=== PATIENT | female | born 1960 | race African-American/Black ===

== ENCOUNTER 2017-07-28 22:04 | Emergency (ER) | payer OTHER, BC ==
[~2017-07-28] VITALS: Ht 165.1 cm; Wt 74.0 kg
[~2017-07-28 22:04] MED LIST: CEPH500C3 PO; HYDR-3535 PO; HYDR12.56; ONDA8 PO
[2017-07-28 22:06] VITALS: BP 133/85; PULSE 78; RESP 14; TEMP 98.4; O2SAT 99
[2017-07-28] MEDS ORDERED: HYDR12.57 PO (22:19)
[2017-07-28] MEDS ORDERED: PRAV10TA PO (22:19)
[2017-07-28] MEDS ORDERED: CYCL10TA PO (22:24)
[2017-07-28] MEDS ORDERED: DICL75TA PO (22:24)
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
[2017-07-28] MEDS ORDERED: ACETAMINOPHEN/HYDROcodone 325 MG/5 MG TAB PO ONE (22:30)
[2017-07-28] MEDS ORDERED: CYCLOBENZAPRINE HCL 10 MG TAB PO ONE (22:30)
== END 2017-07-28 22:46 | disposition home or self-care (01) ==
LOC: NEPD 22:04
DX: M54.2 Cervicalgia (principal); R51 Headache
CPT/HCPCS: 99283